=== PATIENT | female | born 1980 | race Caucasian/White ===

== ENCOUNTER → 2020-06-12 | Outpatient (CLI) | payer BC ==
[~2020-06-12] MED LIST: ALBUTEROL INHAL17 GM IH; AUGMENTIN 875875 MG PO; DIFLUCAN150 MG PO; DOXYCYCLINE 10100 MG PO; MEDROL DOSPAK21 TAB PO; MUCINEX TA600 MG/TA1 PO; NOHOMEMEDICATIONS; NORCO 5-325 TA1 EACH PO; TESSALON200 MG PO; TOPAMAX100 MG PO; TUSSIONEX PENN473 ML PO
== END ==
LOC: SJCVCIMAG 09:19
PROVIDERS: ATTEND Internal Medicine
DX: Z01.818 Encounter for other preprocedural examination (principal); R94.31 Abnormal electrocardiogram [ECG] [EKG]

== ENCOUNTER 2021-04-08 21:58 | Emergency (ER) | payer BC ==
[~2021-04-08] VITALS: Ht 165.1 cm; Wt 117.9 kg
[2021-04-08] MEDS ORDERED: EFFEXOR XR75 MG PO (22:09)
[2021-04-08] MEDS ORDERED: DESYREL150 MG PO (22:10)
[2021-04-08] MEDS ORDERED: PREDNISONE 20 M20 MG PO (22:35)
[2021-04-08] MEDS ORDERED: DOXYCYCLINE 10100 MG PO (22:35)
[2021-04-09 03:50] VITALS: BP 168/94
== END 2021-04-08 22:58 | disposition home or self-care (01) ==
LOC: ER 21:58
DX: L25.9 Unspecified contact dermatitis, unspecified cause (principal); Z88.1 Allergy status to other antibiotic agents; Z88.5 Allergy status to narcotic agent; Z88.8 Allergy status to other drugs, medicaments and biological substances; Z79.899 Other long term (current) drug therapy